=== PATIENT | female | born 1985 | race Caucasian/White ===

== ENCOUNTER 2022-01-26 20:21 | Emergency (ER) | payer BC ==
[2022-01-26 20:49] VITALS: BP 118/82; PULSE 97; RESP 20; TEMP 98.2; BMI 33.0
== END 2022-01-26 23:12 | disposition home or self-care (01) ==
LOC: JERFT 20:21
DX: S99.911A Unspecified injury of right ankle, initial encounter (principal); X50.0XXA Overexertion from strenuous movement or load, initial encounter
CPT/HCPCS: 73610-TC-RT-FY; 73630-TC-RT-FY; 99283-25